=== PATIENT | female | born 1945 | race Caucasian/White ===

== ENCOUNTER → 2018-08-16 | Outpatient (CLI) | payer OTHER ==
[~2018-08-16] MED LIST: ADULT LOW DOSE81 MG PO; AMARYL4 MG PO; ASPIR 8181 M1 PO; ASPIR 8181 MG PO; ASPIRIN325 PO; AZITHROMYCIN 2250 MG PO; B12INJ IM; BISOPROLOL FUMAR5 M1 PO; CHLORDIAZEPOXI1 EAC1 PO; CIPRO250 M1 PO; CYANOCOBAL1000 MCG/1 IM; DIABETA 5MG TABL5 MG; DUONEB 2.5-0.5 M3 ML INH; ENOXAPARIN40 MG/0.1 SUBQ; FOSAMAX 70 MG T70 M1; GLUCOPHAGE1000 MG; HYDROCODONE-AP1 EAC6 PO; JANUVIA25 MG PO; LEVAQUIN 500 M500 M2 PO; LIPITOR 20 MG T20 M1 PO; LISINOPRIL10 MG PO; LOVASTAT40; LOVASTAT40 PO; LOVASTATIN 20 M20 MG PO; METFORMIN HCL500 MG PO; OMEPRAZOLE 20 M20 MG PO; PATANASE30.5 GM; PREDNISONE 10 M10 MG PO; PREDNISONE 20 M20 M1 PO; PROTONIX40 M1 PO; SENEXON-S TABL1 EACH PO; SENNA8.6 MG PO; SINGULAIR 10 MG10 M1 PO; VENTOLIN HFA 1818 GM INH; VENTOLIN HFA INH8 GM IH; VITAMIN D31000 UNI2 PO; ZPAK PO
== END ==
LOC: M.RAD 13:03
DX: Z12.31 Encounter for screening mammogram for malignant neoplasm of breast (principal); S72.041A Displaced fracture of base of neck of right femur, initial encounter for closed fracture; E28.39 Other primary ovarian failure; M81.0 Age-related osteoporosis without current pathological fracture; F17.210 Nicotine dependence, cigarettes, uncomplicated; J31.2 Chronic pharyngitis; X58.XXXA Exposure to other specified factors, initial encounter; Y93.89 Activity, other specified; Y92.89 Other specified places as the place of occurrence of the external cause; Y99.8 Other external cause status

== ENCOUNTER → 2018-10-13 | Outpatient (CLI) | payer OTHER ==
[2018-10-13 12:59] LABS: CREATININE 0.9 mg/dL (0.6-1.3)
== END ==
LOC: M.LAB 12:30 → M.CT 13:30
PROVIDERS: Family Medicine
DX: E04.2 Nontoxic multinodular goiter (principal); J31.2 Chronic pharyngitis; M81.0 Age-related osteoporosis without current pathological fracture; E13.8 Other specified diabetes mellitus with unspecified complications; F17.210 Nicotine dependence, cigarettes, uncomplicated

== ENCOUNTER → 2018-10-28 | Outpatient (CLI) | payer OTHER | LOC: M.ULTRA 10:54 | DX: E04.1 Nontoxic single thyroid nodule (principal) ==

== ENCOUNTER → 2018-11-25 | Outpatient (CLI) | payer OTHER | LOC: M.ULTRA 08:00 | DX: K80.20 Calculus of gallbladder without cholecystitis without obstruction (principal) ==

== ENCOUNTER → 2018-12-13 | Outpatient (CLI) | payer OTHER ==
[2018-12-13 16:00] LABS: HEMATOCRIT 42.6 % (37.0-47.0); HEMOGLOBIN 14.4 gm/dL (12.0-15.0); MCH 30.1 pg (26.0-34.0); MCHC 33.8 g/dL (28.0-37.0); MCV 89.1 fL (80.0-100.0); MPV 7.8 fl. (7.2-11.1); RBC 4.78 mil/uL (4.20-5.00); RDW-CV 13.7 % (10.5-14.5); WBC 6.3 thou/uL (4.0-11.0)
== END ==
LOC: M.LAB 15:36
DX: H34.11 Central retinal artery occlusion, right eye (principal)

== ENCOUNTER 2018-12-22 16:48 | Emergency (ER) | payer OTHER ==
[~2018-12-22] VITALS: Ht 154.9 cm; Wt 53.1 kg
[2018-12-22 17:26] LABS: ABSOLUTE BASOPHILS 0.1 thou/uL (0.0-0.2); ABSOLUTE EOSINOPHILS 0.1 thou/uL (0.0-0.7); ABSOLUTE LYMPHOCYTES 1.2 thou/uL (0.8-5.3); ABSOLUTE MONOCYTES 0.3 thou/uL (0.0-1.2); BASOPHILS 0.9 %; EOSINOPHILS 1.9 %; HEMATOCRIT 45.5 % (37.0-47.0); HEMOGLOBIN 15.5 gm/dL (12.0-15.0); LYMPHOCYTES 20.6 %; MCH 30.6 pg (26.0-34.0); MONOCYTES 5.9 %; MPV 8.2 fl. (7.2-11.1); NUCLEATED RBCS 0 /100WBC; PLATELET COUNT* 177 thou/uL (150-400); POLYS 70.7 %; RBC 5.06 mil/uL (4.20-5.00); RDW-CV 13.7 % (10.5-14.5); WBC 5.6 thou/uL (4.0-11.0)
[2018-12-22 17:35] LABS: CALCIUM 10.2 mg/dL (8.5-10.1); CREATININE 0.8 mg/dL (0.6-1.3); POTASSIUM 4.5 mmol/L (3.5-5.1)
[2018-12-22 17:41] LABS: ALBUMIN 3.8 g/dL (3.4-5.0); MAGNESIUM 1.8 mg/dL (1.8-2.4); TOTAL BILIRUBIN 0.3 mg/dL (<0.1-1.0); TOTAL PROTEIN 7.5 g/dL (6.4-8.2)
[2018-12-22] MEDS ORDERED: NORVASC2.5 MG PO (17:50)
[2018-12-22] MEDS ORDERED: OMEPRAZOLE40 MG PO (17:50)
[2018-12-22] MEDS ORDERED: LIPITOR 20 MG T20 M1 PO (17:50)
[2018-12-22] MEDS ORDERED: IRON PO (17:51)
[2018-12-22] MEDS ORDERED: NORCO 5-325 TA1 EACH PO (17:52)
[2018-12-22] MEDS ORDERED: VITAMIN D1000 UNI1 PO (17:52)
[2018-12-22] MEDS ORDERED: CARAFATE 1 GM TA1 G1 PO (17:53)
[2018-12-22 18:33] LABS: URINE BILIRUBIN NEGATIVE (Negative); URINE BLOOD NEGATIVE (Negative); URINE CLARITY CLEAR; URINE COLOR YELLOW; URINE GLUCOSE-RANDOM 1+ (Negative); URINE KETONES NEGATIVE (Negative); URINE LEUKOCYTES-REFLEX NEGATIVE (Negative); URINE NITRITE-REFLEX NEGATIVE (Negative); URINE PROTEIN NEGATIVE (Negative); URINE SPECIFIC GRAVITY 1.015 (1.005-1.030); URINE UROBILINOGEN 0.2 E.U./dl (0.2-1.0)
[2018-12-22 20:32] VITALS: BP 166/77
--- NOTE | 2018-12-23 11:04 | EKG ---
[place] [address] ELECTROCARDIOGRAM REPORT Name: JORGELA JOSE Room: [facility]#: [id number] Admission: 12/22/18 Attend Phys: Discharge: 12/22/18 Date of : 41 Report #: [id number] THIS REPORT FOR: //name// ED Test Date: 2018-12-22 Test Time: 16:53:43 Pat Name: LA PATEL Department: Room: Gender: F Copper Tapper: : 1945 Requested By: Jaun Lance Order Number: [id number] MD: Kush Oliver Measurements Intervals [place] Rate: 81 P: 71 KS: 171 QRS: 63 QRSD: 88 T: 54 QT: 373 QTc: 433 Interpretive Statements Sinus rhythm Compared to ECG 08/11/2017 12:09:52 No significant changes Electronically Signed On 12-23-2018 11:04:15 INFORMATION SECURITY ENGINEER by Kush Oliver [email or web address] <ELECTRONICALLY SIGNED> By: Kush Oliver MD, [facility] 12/23/18 1104 [id number] [id number] Kush Oliver MD, FACC /EPI
--- NOTE | 2018-12-23 11:11 | EKG ---
[place] [address] ELECTROCARDIOGRAM REPORT Name: LA PATEL Room: [facility]#: [id number] Admission: 12/22/18 Attend Phys: Discharge: 12/22/18 Date of : 41 Report #: [id number] THIS REPORT FOR: //name// [place] ED Test Date: 2018-12-22 Test Time: 19:43:59 Pat Name: LA PATEL Department: Room: Gender: F Surgical Garment Fitter: KRISTINA : 1945 Requested By: Jaun Lance Order Number: [id number] MD: Kush Oliver Measurements Intervals [place] Rate: 69 P: 30 VT: 153 QRS: 55 QRSD: 94 T: 42 QT: 414 QTc: 444 Interpretive Statements Sinus rhythm Consider left ventricular hypertrophy Electronically Signed On 12-23-2018 11:11:08 QUARRY MANAGER by Kush Oliver [email or web address] <ELECTRONICALLY SIGNED> By: Kush Oliver MD, [facility] 12/23/18 1111 [id number] 194 Kush Oliver MD, FACC /EPI
== END 2018-12-22 20:33 | disposition home or self-care (01) ==
LOC: M.ERS 16:48
PROVIDERS: Emergency Medicine Emergency Medical Services
DX: R07.89 Other chest pain (principal); F17.210 Nicotine dependence, cigarettes, uncomplicated; E11.9 Type 2 diabetes mellitus without complications; I10 Essential (primary) hypertension; E78.00 Pure hypercholesterolemia, unspecified; Z88.0 Allergy status to penicillin

== ENCOUNTER → 2019-01-06 | Outpatient (CLI) | payer OTHER ==
[~2019-01-06] MED LIST changes: +CARAFATE 1 GM TA1 G1 PO; +IRON PO; +NORCO 5-325 TA1 EACH PO; +NORVASC2.5 MG PO; +OMEPRAZOLE40 MG PO; +VITAMIN D1000 UNI1 PO
== END ==
LOC: M.ULTRA 10:00
DX: I65.22 Occlusion and stenosis of left carotid artery (principal); I63.9 Cerebral infarction, unspecified; H34.9 Unspecified retinal vascular occlusion

== ENCOUNTER → 2019-04-08 | Outpatient (CLI) | payer OTHER ==
[2019-04-08 11:06] LABS: CREATININE 0.8 mg/dL (0.6-1.3)
== END ==
LOC: M.LAB 10:00 → M.CT 11:30
PROVIDERS: Family Medicine
DX: I70.0 Atherosclerosis of aorta (principal); M25.78 Osteophyte, vertebrae; Q89.09 Congenital malformations of spleen; Z90.49 Acquired absence of other specified parts of digestive tract

== ENCOUNTER → 2019-04-14 | Outpatient (CLI) | payer OTHER | LOC: M.CT 12:36 | DX: J98.4 Other disorders of lung (principal); I25.10 Atherosclerotic heart disease of native coronary artery without angina pectoris; I70.0 Atherosclerosis of aorta; Z87.891 Personal history of nicotine dependence ==